=== PATIENT | female | born 1985 ===

== ENCOUNTER 2017-04-25 23:19 | Emergency (ER) | payer SELFPAY ==
[2017-04-25 23:36] VITALS: BP 101/60; PULSE 60; RESP 18; TEMP 98.2; O2SAT 99
--- NOTE | 2017-04-25 23:41 | ED PDOC ---
HPI: Back Time Seen by Provider: 04/25/17 23:34 Chief Complaint (Nursing): Back Pain History Per: Patient History/Exam Limitations: no limitations Onset/Duration Of Symptoms: Days Current Symptoms Are (Timing): Still Present Quality Of Discomfort: Aching Severity: Moderate Associated Symptoms: None Exacerbating Factor(s): Turning, Movement, Sitting Additional History Per: Patient Additional Complaint(s): Pt. c/o of L sided thoraco-lumbar back pain x 2 days, worse with movement. Denies parasthesias, numbness, weakness, tingling. Denies urinary symptoms. Denies abd pain. No fevers/chills. States she has difficulty at work because of the pain. - Risk Factors AAA Risk Factors: Pos: Older Than 49 Years Of Age Past Medical History Reviewed: Historical Data, Nursing Documentation, Vital Signs Vital Signs: Last Vital Signs Temp 98.2 F 04/25/17 23:25 Pulse 60 04/25/17 23:25 Resp 18 04/25/17 23:25 BP 101/60 04/25/17 23:25 Pulse Ox 99 04/25/17 23:25 - Medical History PMH: HTN - Family History Family History: States: Unknown Family Hx - Home Medications Home Medications: Ambulatory Orders Medication Instructions Recorded Cyclobenzaprine [Cyclobenzaprine 10 mg PO BID #15 tab 04/26/17 HCl] Ibuprofen [Motrin Tab] 600 mg PO Q6 #30 tab 04/26/17 - Allergies Allergies/Adverse Reactions: Allergies Allergy/AdvReac Type Severity Reaction Status Date / Time No Known Allergies Allergy Verified 04/25/17 23:33 Review of Systems ROS Statement: Except As Marked, All Systems Reviewed And Found Negative Musculoskeletal: Positive for: Back Pain Physical Exam - Reviewed Nursing Documentation Reviewed: Yes Vital Signs Reviewed: Yes - Physical Exam Appears: Positive for: Well, Non-toxic, No Acute Distress Head Exam: Positive for: ATRAUMATIC, NORMAL INSPECTION, NORMOCEPHALIC Skin: Positive for: Normal Color, Warm, DRY Eye Exam: Positive for: EOMI, Normal appearance, PERRL ENT: Positive for: Normal ENT Inspection Neck: Positive for: Normal, Painless ROM Cardiovascular/Chest: Positive for: Regular Rate, Rhythm Respiratory: Positive for: CNT, Normal Breath Sounds Gastrointestinal/Abdominal: Positive for: Normal Exam, Bowel Sounds, Soft Back: Positive for: Normal Inspection, Muscle Spasm (L paraverterbral MSK tenderness). Negative for: L CVA Tenderness, R CVA Tenderness, Vertebral Tenderness Extremity: Positive for: Normal ROM Neurologic/Psych: Positive for: Alert, project specialist II-XII, Oriented. Negative for: Motor/Sensory Deficits - ECG O2 Sat by Pulse Oximetry: 99 Pulse Ox Interpretation: Normal Medical Decision Making Medical Decision Making: A/P: Pt. w/ MSK pain, not concerned for cauda equina/stenosis. -flexeril and toradol for pain -udip to r/o blood for stone 1230AM PT. feeling much better, able to move more easily. Will d/c home. Return precautions given. Disposition - Clinical Impression Clinical Impression: Back strain - Patient ED Disposition Is Patient to be Admitted: No - Disposition Disposition: Routine/Home Disposition Time: 00:25 Condition: IMPROVED Prescriptions: Cyclobenzaprine [Cyclobenzaprine HCl] 10 mg PO BID #15 tab Ibuprofen [Motrin Tab] 600 mg PO Q6 #30 tab Instructions: Thoracic Back Strain (ED) Forms: [employer] (Sami) Print Language: INDIAN
== END 2017-04-26 00:33 | disposition home or self-care (01) ==
LOC: H.ER 23:19
DX: M54.5 Low back pain (principal); I10 Essential (primary) hypertension
CPT/HCPCS: 81025; 96372; 99283; J1885